=== PATIENT | female | born 1950 | race Two or more races ===

== ENCOUNTER 2021-07-23 09:45 | Outpatient (CLI) | payer OTHER | END 2021-07-23 09:46 | disposition home or self-care (01) | LOC: NUCLEAR 09:45 | PROVIDERS: ATTEND Internal Medicine Hematology & Oncology | DX: D68.61 Antiphospholipid syndrome (principal); I80.222 Phlebitis and thrombophlebitis of left popliteal vein ==

== ENCOUNTER 2023-01-04 07:45 | Outpatient (CLI) | payer OTHER | END 2023-01-04 07:49 | disposition home or self-care (01) | LOC: NUCLEAR 07:45 | DX: I11.9 Hypertensive heart disease without heart failure (principal); I73.9 Peripheral vascular disease, unspecified; E11.69 Type 2 diabetes mellitus with other specified complication; R60.0 Localized edema ==

== ENCOUNTER 2025-01-09 07:47 | Outpatient (CLI) | payer OTHER | END 2025-01-09 07:48 | disposition home or self-care (01) | LOC: NUCLEAR 07:47 | DX: I70.213 Atherosclerosis of native arteries of extremities with intermittent claudication, bilateral legs (principal) ==